=== PATIENT | male | born 1955 | race Caucasian/White ===

== ENCOUNTER 2016-08-25 12:06 | Emergency (ER) | payer MEDICARE, MEDICAID ==
[~2016-08-25] VITALS: Ht 172.7 cm; Wt 113.0 kg
[~2016-08-25 12:06] MED LIST: AMLO10TA2 PO; ATOR10TA9 PO; CARV25TA12 PO; FERR325T10 PO; FURO-92 PO; HYDR100T25 PO; HYDR20VI3 PO; ISOS20TA3 PO; LEVO750T26 PO; METO5TAB5 PO; NPH,100V SC; NPH,100V SQ-INSULIN; SODI650T PO; TERA1CAP3 PO
[2016-08-25] MEDS ORDERED: LISI-167 PO (13:43)
[2016-08-25] MEDS ORDERED: GLIP10TA13 PO (13:43)
[2016-08-25] MEDS ORDERED: NPH,100V INJ (13:50)
[2016-08-25] MEDS ORDERED: CARV25TA12 PO (13:50)
[2016-08-25] MEDS ORDERED: ALLO300T PO (13:50)
[2016-08-25 13:51] LABS: BLOOD UREA NITROGEN 79 mg/dL (7-18)
[2016-08-25 13:58] LABS: ASPARTATE AMINO TRANSFERASE 12 U/L (15-37)
[2016-08-25 16:14] VITALS: BP 131/52
== END 2016-08-25 16:15 | disposition home or self-care (01) ==
LOC: ED 13:06
DX: I87.2 Venous insufficiency (chronic) (peripheral) (principal); R60.0 Localized edema; I12.9 Hypertensive chronic kidney disease with stage 1 through stage 4 chronic kidney disease, or unspecified chronic kidney disease; E11.22 Type 2 diabetes mellitus with diabetic chronic kidney disease; N18.3 Chronic kidney disease, stage 3 (moderate)
CPT/HCPCS: 36415; 71020; 80053; 83880; 85025; 85610; 85730; 93970; 99285

== ENCOUNTER 2017-03-31 17:00 | Emergency (ER) | payer MEDICAID, MEDICARE ==
[~2017-03-31] VITALS: Ht 172.7 cm; Wt 102.1 kg
[~2017-03-31 17:00] MED LIST changes: +ALLO300T PO; -FERR325T10 PO; +FERR325T17 PO; +GLIP10TA13 PO; +LISI-167 PO; +NPH,100V INJ
[2017-03-31 17:11] VITALS: BP 137/65
[2017-03-31] MEDS ORDERED: [UNRECOGNIZED DRUG - OTHER] (17:32)
[2017-03-31] MEDS ORDERED: ONDANSETRON ODT 4 MG ONE (18:06)
[2017-03-31] MEDS ORDERED: ONDANSETRON ODT 4 MG PO ONE (18:30)
== END 2017-03-31 18:17 | disposition home or self-care (01) ==
LOC: ED 17:30
DX: J44.1 Chronic obstructive pulmonary disease with (acute) exacerbation (principal); I13.0 Hypertensive heart and chronic kidney disease with heart failure and stage 1 through stage 4 chronic kidney disease, or unspecified chronic kidney disease; N18.3 Chronic kidney disease, stage 3 (moderate); I50.9 Heart failure, unspecified; Z99.81 Dependence on supplemental oxygen; E11.9 Type 2 diabetes mellitus without complications
CPT/HCPCS: 71046; 99284; Q0162

== ENCOUNTER 2017-07-18 21:06 | Inpatient (IN) | payer MEDICARE ==
[~2017-07-18] VITALS: Ht 170.2 cm; Wt 104.3 kg
[~2017-07-18 21:06] MED LIST changes: +[UNRECOGNIZED DRUG - OTHER]
[2017-07-18] MEDS ORDERED: SODIUM CHLORIDE FLUSH 10ML SYR IVF ONE (23:00)
[2017-07-18] MEDS ORDERED: ACETAMINOPHEN 325 MG TABLET PO ONE (23:00)
[2017-07-18] MEDS ORDERED: SODIUM CHLORIDE 0.9% 1,000ML IVBOLUS ONE (23:00)
[2017-07-18] MEDS ORDERED: METF500T5 PO (23:05)
[2017-07-18] MEDS ORDERED: ASPI-621 PO (23:05)
[2017-07-18] MEDS ORDERED: AMLO5TAB2 PO (23:05)
[2017-07-18] MEDS ORDERED: SPIR50TA2 PO (23:05)
[2017-07-18 23:22] LABS: MEAN CORPUSCULAR HEMOGLOBIN 30.3 pg (27.5-34.5); MEAN CORPUSCULAR VOLUME 89.1 fL (81-97); MEAN PLATELET VOLUME 8.4 fL (7.4-10.4); PLATELET COUNT 182 x10^3/uL (130-400); RED BLOOD COUNT 3.33 x10^6/uL (4.38-5.82); RED CELL DISTRIBUTION WIDTH 13.1 % (9.4-14.8)
[2017-07-18 23:34] LABS: ALANINE AMINOTRANSFERASE 16 U/L (12-78); ALBUMIN 3.3 g/dL (3.4-5.0); ANION GAP 11 mmol/L (5-15); CALCIUM 9.1 mg/dL (8.5-10.1); CHLORIDE 96 mmol/L (98-107); CREATININE 3.07 mg/dL (0.7-1.3)
[2017-07-18 23:38] LABS: ALKALINE PHOSPHATASE 122 U/L (45-117); BASOPHILS # (AUTO) 0.03 x10^3/uL (0-0.1); BASOPHILS % (AUTO) 0 % (0-1); BILIRUBIN,TOTAL 0.7 mg/dL (0.2-1.0); EOSINOPHILS # (AUTO) 0.01 x10^3/uL (0-0.4); EOSINOPHILS % (AUTO) 0 % (1-7); LYMPHOCYTES # (AUTO) 0.67 x10^3/uL (1-3.4); LYMPHOCYTES % (AUTO) 4 % (22-44); MD SCAN; MONOCYTES # (AUTO) 1.36 x10^3/uL (0.2-0.8); MONOCYTES % (AUTO) 8 % (2-9); NEUTROPHILS # (AUTO) 15.34 x10^3/uL (1.8-6.8); NEUTROPHILS % (AUTO) 88 % (42-75); TOTAL PROTEIN 7.6 g/dL (6.4-8.2)
[2017-07-18 23:41] LABS: TROPONIN I < 0.015 ng/mL (0.000-0.045)
[2017-07-19 00:03] LABS: MICROSCOPIC AUTO
[2017-07-19 00:07] LABS: CULTURE INDICATED? YES
[2017-07-19] MEDS ORDERED: CEFTRIAXONE PMX 1GM/50ML 50 ML ONE (00:26)
[2017-07-19] MEDS ORDERED: CEFTRIAXONE PMX 1GM/50ML 50 ML IV ONE (00:30)
[2017-07-19] MEDS ORDERED: ACETAMINOPHEN 325 MG TABLET ONE (00:35)
[2017-07-19] MEDS ORDERED: ONDANSETRON 2MG/ML, 2ML IVPush PRN (01:00)
[2017-07-19] MEDS ORDERED: BISACODYL 10 MG SUPP PR PRN (01:00)
[2017-07-19] MEDS ORDERED: POLYETHYLENE GLYCOL 17 GM PACKET PO PRN (01:00)
[2017-07-19 01:14] LABS: HEMOGLOBIN A1C 9.9 % (4.2-6.3)
[2017-07-19 02:00] VITALS: BP 155/66
[2017-07-19] MEDS: SODIUM CHLORIDE 0.9% 1,000 ML IV SCH ×3 (02:50→21:04)
[2017-07-19] MEDS: HEPARIN 5,000 UNITS/ML, 1ML SQ SCH ×3 (02:51→17:03)
[2017-07-19 04:50] LABS: MEAN CORPUSCULAR HEMOGLOBIN 29.9 pg (27.5-34.5); MEAN CORPUSCULAR HGB CONC 33.4 g/dL (33.2-36.2); MEAN CORPUSCULAR VOLUME 89.3 fL (81-97); MEAN PLATELET VOLUME 8.9 fL (7.4-10.4); PLATELET COUNT 162 x10^3/uL (130-400); RED BLOOD COUNT 3.11 x10^6/uL (4.38-5.82); RED CELL DISTRIBUTION WIDTH 13.3 % (9.4-14.8)
[2017-07-19 05:03] LABS: CHLORIDE 98 mmol/L (98-107)
[2017-07-19 05:11] LABS: ALANINE AMINOTRANSFERASE 16 U/L (12-78); ALBUMIN 3.1 g/dL (3.4-5.0); ALKALINE PHOSPHATASE 120 U/L (45-117); ANION GAP 8 mmol/L (5-15); BILIRUBIN,TOTAL 0.7 mg/dL (0.2-1.0); CALCIUM 8.2 mg/dL (8.5-10.1); CREATININE 2.85 mg/dL (0.7-1.3); TOTAL PROTEIN 7.2 g/dL (6.4-8.2)
[2017-07-19 05:15] LABS: BASOPHILS % (AUTO) 0 % (0-1); EOSINOPHILS % (AUTO) 0 % (1-7); LYMPHOCYTES # (AUTO) 0.49 x10^3/uL (1-3.4); LYMPHOCYTES % (AUTO) 3 % (22-44); MD SCAN; MONOCYTES # (AUTO) 1.17 x10^3/uL (0.2-0.8); MONOCYTES % (AUTO) 8 % (2-9); NEUTROPHILS # (AUTO) 14.05 x10^3/uL (1.8-6.8); NEUTROPHILS % (AUTO) 89 % (42-75)
[2017-07-19] MEDS: ACETAMINOPHEN 325 MG TABLET PO PRN ×2 (06:16→19:21)
[2017-07-19 07:58] VITALS: BP 157/67
[2017-07-19] MEDS: metFORMIN 500 MG TABLET PO SCH ×2 (09:00→21:05)
[2017-07-19] MEDS: SPIRONOLACTONE 50 MG TABLET PO SCH (09:00)
[2017-07-19] MEDS: METOLAZONE 5 MG TABLET PO SCH (09:08)
[2017-07-19] MEDS: AMLODIPINE 5 MG TABLET PO SCH (09:10)
[2017-07-19] MEDS: ASPIRIN 81 MG TABLET EC PO SCH (09:12)
[2017-07-19] MEDS: CARVEDILOL 25 MG TABLET PO SCH ×2 (09:12→21:04)
[2017-07-19] MEDS: SENNA/DOCUSATE TABLET PO SCH (09:13)
[2017-07-19] MEDS: FUROSEMIDE 80 MG TABLET PO SCH (09:20)
[2017-07-19] MEDS: INSULIN NPH HUMAN 100 UNIT/ML, 3ML VIAL SQ-INSULIN SCH ×2 (10:14→21:08)
[2017-07-19 13:56] VITALS: BP 124/57
[2017-07-19 19:17] VITALS: BP 140/58
[2017-07-20 01:00] VITALS: BP 136/67
[2017-07-20] MEDS: HEPARIN 5,000 UNITS/ML, 1ML SQ SCH ×3 (01:00→17:39)
[2017-07-20] MEDS ORDERED: CEFTRIAXONE PMX 1GM/50ML 50 ML IV SCH (01:00)
[2017-07-20 04:55] LABS: ALBUMIN 2.8 g/dL (3.4-5.0); ANION GAP 8 mmol/L (5-15); CALCIUM 8.7 mg/dL (8.5-10.1); CHLORIDE 100 mmol/L (98-107)
[2017-07-20 04:59] LABS: ALANINE AMINOTRANSFERASE 14 U/L (12-78); ALKALINE PHOSPHATASE 117 U/L (45-117); BILIRUBIN,TOTAL 0.5 mg/dL (0.2-1.0); TOTAL PROTEIN 7.2 g/dL (6.4-8.2)
[2017-07-20 05:00] LABS: MEAN CORPUSCULAR HGB CONC 33.2 g/dL (33.2-36.2); MEAN CORPUSCULAR VOLUME 90.5 fL (81-97); MEAN PLATELET VOLUME 9.4 fL (7.4-10.4); PLATELET COUNT 180 x10^3/uL (130-400); RED BLOOD COUNT 2.98 x10^6/uL (4.38-5.82); RED CELL DISTRIBUTION WIDTH 13.7 % (9.4-14.8)
[2017-07-20 05:57] LABS: BASOPHILS # (AUTO) 0.01 x10^3/uL (0-0.1); BASOPHILS % (AUTO) 0 % (0-1); EOSINOPHILS # (AUTO) 0.06 x10^3/uL (0-0.4); EOSINOPHILS % (AUTO) 0 % (1-7); LYMPHOCYTES # (AUTO) 0.72 x10^3/uL (1-3.4); LYMPHOCYTES % (AUTO) 4 % (22-44); MD SCAN; MONOCYTES # (AUTO) 1.15 x10^3/uL (0.2-0.8); MONOCYTES % (AUTO) 7 % (2-9); NEUTROPHILS # (AUTO) 14.27 x10^3/uL (1.8-6.8); NEUTROPHILS % (AUTO) 88 % (42-75)
[2017-07-20] MEDS: SODIUM CHLORIDE 0.9% 1,000 ML IV SCH ×3 (06:18→19:15)
[2017-07-20 07:26] VITALS: BP 130/54
[2017-07-20] MEDS: SPIRONOLACTONE 50 MG TABLET PO SCH (08:20)
[2017-07-20] MEDS: METOLAZONE 5 MG TABLET PO SCH (08:20)
[2017-07-20] MEDS: CEFTRIAXONE PMX 2GM/50ML 50 ML IV SCH (08:20)
[2017-07-20] MEDS: ASPIRIN 81 MG TABLET EC PO SCH (08:20)
[2017-07-20] MEDS: CARVEDILOL 25 MG TABLET PO SCH ×2 (08:22→21:25)
[2017-07-20] MEDS: AMLODIPINE 5 MG TABLET PO SCH (08:22)
[2017-07-20] MEDS: SENNA/DOCUSATE TABLET PO SCH (08:22)
[2017-07-20] MEDS: FUROSEMIDE 80 MG TABLET PO SCH (08:22)
[2017-07-20] MEDS: metFORMIN 500 MG TABLET PO SCH ×2 (08:22→21:28)
[2017-07-20 09:54] VITALS: BP 132/49
[2017-07-20] MEDS: INSULIN NPH HUMAN 100 UNIT/ML, 3ML VIAL SQ-INSULIN SCH ×2 (10:00→21:26)
[2017-07-20] MEDS ORDERED: [UNRECOGNIZED DRUG - REMARK] XX PRN (14:30)
[2017-07-20 15:47] VITALS: BP 113/45
[2017-07-20 19:39] VITALS: BP 137/56
[2017-07-20] MEDS: ACETAMINOPHEN 325 MG TABLET PO PRN (23:07)
[2017-07-21 01:06] VITALS: BP 129/55
[2017-07-21] MEDS: HEPARIN 5,000 UNITS/ML, 1ML SQ SCH ×2 (01:08→09:00)
[2017-07-21] MEDS: SODIUM CHLORIDE 0.9% 1,000 ML IV SCH (04:32)
[2017-07-21 05:42] LABS: BASOPHILS % (AUTO) 0 % (0-1); EOSINOPHILS # (AUTO) 0.32 x10^3/uL (0-0.4); EOSINOPHILS % (AUTO) 3 % (1-7); LYMPHOCYTES # (AUTO) 0.86 x10^3/uL (1-3.4); LYMPHOCYTES % (AUTO) 7 % (22-44); MD NO; MEAN CORPUSCULAR HEMOGLOBIN 30.6 pg (27.5-34.5); MEAN CORPUSCULAR HGB CONC 34.1 g/dL (33.2-36.2); MEAN CORPUSCULAR VOLUME 89.8 fL (81-97); MEAN PLATELET VOLUME 9.1 fL (7.4-10.4); MONOCYTES # (AUTO) 1.12 x10^3/uL (0.2-0.8); MONOCYTES % (AUTO) 10 % (2-9); NEUTROPHILS % (AUTO) 81 % (42-75); PLATELET COUNT 183 x10^3/uL (130-400); RED BLOOD COUNT 2.68 x10^6/uL (4.38-5.82); RED CELL DISTRIBUTION WIDTH 13.6 % (9.4-14.8)
[2017-07-21 05:46] LABS: ALBUMIN 2.7 g/dL (3.4-5.0); ANION GAP 9 mmol/L (5-15); CALCIUM 8.5 mg/dL (8.5-10.1); CHLORIDE 102 mmol/L (98-107)
[2017-07-21 05:50] LABS: ALANINE AMINOTRANSFERASE 15 U/L (12-78); ALKALINE PHOSPHATASE 126 U/L (45-117); BILIRUBIN,TOTAL 0.4 mg/dL (0.2-1.0); CREATININE 2.51 mg/dL (0.7-1.3)
[2017-07-21 07:25] VITALS: BP 146/63
[2017-07-21] MEDS: CEFTRIAXONE PMX 2GM/50ML 50 ML IV SCH (07:57)
[2017-07-21] MEDS ORDERED: SULF1TAB24 PO (08:12)
[2017-07-21] MEDS: INSULIN NPH HUMAN 100 UNIT/ML, 3ML VIAL SQ-INSULIN SCH (09:00)
[2017-07-21] MEDS: METOLAZONE 5 MG TABLET PO SCH (09:17)
[2017-07-21] MEDS: SENNA/DOCUSATE TABLET PO SCH (09:18)
[2017-07-21] MEDS: FUROSEMIDE 80 MG TABLET PO SCH (09:18)
[2017-07-21] MEDS: ASPIRIN 81 MG TABLET EC PO SCH (09:18)
[2017-07-21] MEDS: CARVEDILOL 25 MG TABLET PO SCH (09:18)
[2017-07-21] MEDS: SPIRONOLACTONE 50 MG TABLET PO SCH (09:18)
[2017-07-21] MEDS: AMLODIPINE 5 MG TABLET PO SCH (09:18)
[2017-07-21] MEDS: metFORMIN 500 MG TABLET PO SCH (09:21)
== END 2017-07-21 11:20 | disposition home or self-care (01) | DRG 871 ==
LOC: ED 07-19 00:39 → EDIP 07-19 00:44 → ED 07-19 00:56 → 3NW 07-19 01:24
PROVIDERS: ADMIT Internal Medicine; ATTEND Internal Medicine
PROC: 0T9B70Z Drainage of Bladder with Drainage Device, Via Natural or Artificial Opening (ICD-10-PCS; principal; 2017-07-18)
DX: A41.9 Sepsis, unspecified organism (principal); N17.0 Acute kidney failure with tubular necrosis; N39.0 Urinary tract infection, site not specified; N18.4 Chronic kidney disease, stage 4 (severe); I13.0 Hypertensive heart and chronic kidney disease with heart failure and stage 1 through stage 4 chronic kidney disease, or unspecified chronic kidney disease; E87.1 Hypo-osmolality and hyponatremia; E44.1 Mild protein-calorie malnutrition; I50.32 Chronic diastolic (congestive) heart failure; E11.22 Type 2 diabetes mellitus with diabetic chronic kidney disease; E11.40 Type 2 diabetes mellitus with diabetic neuropathy, unspecified; D64.9 Anemia, unspecified; E11.21 Type 2 diabetes mellitus with diabetic nephropathy; E11.65 Type 2 diabetes mellitus with hyperglycemia; E78.5 Hyperlipidemia, unspecified; G47.33 Obstructive sleep apnea (adult) (pediatric); J44.9 Chronic obstructive pulmonary disease, unspecified; Z79.4 Long term (current) use of insulin; Z87.01 Personal history of pneumonia (recurrent); Z79.82 Long term (current) use of aspirin; Z79.899 Other long term (current) drug therapy
CPT/HCPCS: 36415; 71045; 80053; 81001; 82962; 83036; 83605; 83735; 83880; 84100; 84145; 84484; 85025; 87040; 87077; 87086; 87186; 93005; 96374; J0696; J1644; J1815; J2405; J7030

== ENCOUNTER 2018-03-28 05:18 | Emergency (ER) | payer MEDICARE ==
[~2018-03-28] VITALS: Ht 160 cm; Wt 107.5 kg
[~2018-03-28 05:18] MED LIST changes: +AMLO-150 PO; -AMLO10TA2 PO; +AMLO10TA8 PO; +ASPI81TA45 PO; +METF500T17 PO; +SPIR50TA4 PO; +SULF1TAB24 PO
--- NOTE | 2018-03-28 06:30 | NUR ---
to room 02
[2018-03-28] MEDS ORDERED: OXYcodone/APAP 10/325MG TABLET ONE (06:51)
--- NOTE | 2018-03-28 06:55 | NUR ---
REPORT FROM MICHAEL RAMESH.
[2018-03-28] MEDS ORDERED: OXYcodone/APAP 10/325MG TABLET PO ONE (07:00)
[2018-03-28 07:04] VITALS: BP 110/56
--- NOTE | 2018-03-28 07:38 | NUR ---
Patient given discharge instructions and they have confirmed that they understand the instructions. Patient ambulatory with steady gait.
== END 2018-03-28 07:40 | disposition home or self-care (01) ==
LOC: ED 07:14
DX: K08.89 Other specified disorders of teeth and supporting structures (principal); E11.21 Type 2 diabetes mellitus with diabetic nephropathy; E11.22 Type 2 diabetes mellitus with diabetic chronic kidney disease; I13.0 Hypertensive heart and chronic kidney disease with heart failure and stage 1 through stage 4 chronic kidney disease, or unspecified chronic kidney disease; N18.3 Chronic kidney disease, stage 3 (moderate); J44.9 Chronic obstructive pulmonary disease, unspecified; I50.9 Heart failure, unspecified
CPT/HCPCS: 99283

== ENCOUNTER 2018-08-26 22:07 | Inpatient (IN) | payer MEDICARE ==
[~2018-08-26] VITALS: Ht 172.7 cm; Wt 110.7 kg
[2018-08-30 15:40] VITALS: BP 163/64
== END 2018-08-30 18:09 | disposition home or self-care (01) | DRG 682 ==
LOC: ED 23:50 → EDIP 23:55 → 4WST 08-27 00:33
PROVIDERS: ADMIT Internal Medicine; ATTEND Internal Medicine
DX: N17.9 Acute kidney failure, unspecified (principal); I50.33 Acute on chronic diastolic (congestive) heart failure; I13.0 Hypertensive heart and chronic kidney disease with heart failure and stage 1 through stage 4 chronic kidney disease, or unspecified chronic kidney disease; E87.1 Hypo-osmolality and hyponatremia; N18.4 Chronic kidney disease, stage 4 (severe); E78.5 Hyperlipidemia, unspecified; E11.22 Type 2 diabetes mellitus with diabetic chronic kidney disease; D64.9 Anemia, unspecified; G47.33 Obstructive sleep apnea (adult) (pediatric); E66.01 Morbid (severe) obesity due to excess calories; I34.0 Nonrheumatic mitral (valve) insufficiency; I87.2 Venous insufficiency (chronic) (peripheral); I70.0 Atherosclerosis of aorta; J44.9 Chronic obstructive pulmonary disease, unspecified; L29.9 Pruritus, unspecified; N25.81 Secondary hyperparathyroidism of renal origin; N28.1 Cyst of kidney, acquired; Z83.3 Family history of diabetes mellitus; Z82.49 Family history of ischemic heart disease and other diseases of the circulatory system; Z87.891 Personal history of nicotine dependence; Z79.4 Long term (current) use of insulin; Z87.440 Personal history of urinary (tract) infections; Z68.37 Body mass index [BMI] 37.0-37.9, adult; Z79.899 Other long term (current) drug therapy
CPT/HCPCS: 36415; 71046; 76770; 80048; 80053; 80069; 81003; 82306; 82550; 82570; 82728; 82962; 83036; 83540; 83550; 83735; 83880; 83970; 84100; 84156; 84484; 85025; 93005; 93306; 93970; 99285; G0378; J1644; J1815; J1940; Q0163

== ENCOUNTER 2019-03-17 16:02 | Inpatient (IN) | payer MEDICARE ==
[~2019-03-17] VITALS: Ht 175.3 cm; Wt 97.6 kg
[~2019-03-17 16:02] MED LIST changes: +ATOR40TA78 PO; +CHOL500015 PO; +DIPH25CA61 PO; +FERR325T16 PO; +FURO40TA6 PO; +LINA5TAB PO; +PROPOFOL 100 ML IV ONE
[2019-03-17] MEDS ORDERED: SODIUM CHLORIDE 0.9% 1,000 ML IV ONE (16:11)
[2019-03-17 16:23] LABS: BASOPHILS # (AUTO) 0.03 x10^3/uL (0-0.1); BASOPHILS % (AUTO) 0 % (0-1); EOSINOPHILS % (AUTO) 0 % (1-7); LYMPHOCYTES # (AUTO) 1.09 x10^3/uL (1-3.4); LYMPHOCYTES % (AUTO) 9 % (22-44); MD NO; MEAN CORPUSCULAR HEMOGLOBIN 28.8 pg (27.5-34.5); MEAN CORPUSCULAR HGB CONC 32.6 g/dL (33.2-36.2); MEAN CORPUSCULAR VOLUME 88.2 fL (81-97); MEAN PLATELET VOLUME 8.4 fL (7.4-10.4); MONOCYTES # (AUTO) 0.71 x10^3/uL (0.2-0.8); MONOCYTES % (AUTO) 6 % (2-9); NEUTROPHILS # (AUTO) 9.77 x10^3/uL (1.8-6.8); NEUTROPHILS % (AUTO) 84 % (42-75); PLATELET COUNT 175 x10^3/uL (130-400); RED BLOOD COUNT 3.04 x10^6/uL (4.38-5.82); RED CELL DISTRIBUTION WIDTH 15.3 % (9.4-14.8)
[2019-03-17] MEDS ORDERED: EPINEPHRINE SYRINGE 0.1 MG/ML, 10ML ONE (16:30)
[2019-03-17] MEDS ORDERED: NALOXONE 0.4 MG/ML, 1ML ONE (16:30)
[2019-03-17] MEDS ORDERED: OXYcodone IR 5MG TABLET PO PRN (16:30)
[2019-03-17] MEDS ORDERED: LABETALOL 5MG/ML, 20ML IVPush PRN (16:30)
[2019-03-17] MEDS ORDERED: SODIUM CHLORIDE FLUSH 10ML SYR IVF ONE (16:30)
[2019-03-17] MEDS ORDERED: morphine SULFATE 10 MG/ML, 1ML IVPush PRN (16:30)
[2019-03-17] MEDS ORDERED: ONDANSETRON 2MG/ML, 2ML IVPush PRN (16:30)
[2019-03-17] MEDS ORDERED: POLYETHYLENE GLYCOL 17 GM PACKET PO PRN (16:30)
[2019-03-17] MEDS: PLEASE ENTER HEIGHT AND WEIGHT MC SCH ×2 (16:30→20:07)
[2019-03-17] MEDS ORDERED: ENALAPRILAT 1.25 MG/ML, 2ML IVPush PRN (16:30)
[2019-03-17] MEDS: PLEASE ENTER ALLERGIES MC SCH ×2 (16:30→20:07)
[2019-03-17] MEDS ORDERED: SODIUM CHLORIDE 0.9% 1,000ML IVBOLUS ONE (16:30)
[2019-03-17] MEDS ORDERED: BISACODYL 10 MG SUPP PR PRN ×2 (16:30→19:00)
[2019-03-17 16:34] LABS: INTERNATIONAL NORMALIZED RATIO 0.93 (0.93-1.1); PROTHROMBIN TIME 9.9 Seconds (9.6-11.5)
[2019-03-17 16:37] LABS: ALBUMIN 2.8 g/dL (3.4-5.0); ANION GAP 12 mmol/L (5-15); CALCIUM 8.3 mg/dL (8.5-10.1); CHLORIDE 90 mmol/L (98-107)
[2019-03-17 16:39] LABS: ALANINE AMINOTRANSFERASE 21 U/L (12-78); ALKALINE PHOSPHATASE 170 U/L (45-117); BILIRUBIN,TOTAL 1.1 mg/dL (0.2-1.0); CREATININE 3.88 mg/dL (0.7-1.3); TOTAL PROTEIN 7.8 g/dL (6.4-8.2); TROPONIN I < 0.015 ng/mL (0.000-0.045)
[2019-03-17 16:40] LABS: SALICYLATE LEVEL < 1.7 mg/dL (2.8-20.0)
[2019-03-17] MEDS ORDERED: PROPOFOL 100 ML IV PRN (16:54)
[2019-03-17 16:59] LABS: ACETONE, SERUM Negative (Negative)
--- NOTE | 2019-03-17 17:00 | NUR ---
THIS IS A 63 Y/O MALE WHO ARRIVED IN APPARENT ARREST, PT WAS TAKEN TO T 4 IMMEDIATELY AND INTUBATED WITH AN 8.0 TUBE. PT RECEIVED 2 ROUNDS OF COMPRESSIONS AND 1 EPI AND 2.0 MG OF NARCAN. PT AFTER INTUBATION ROSC WAS OBTAINED AND PT HAD HASSAN PLACED AND OG TUBE. PT CONNECTED TO MONITORS AND DIPRIVAN WAS STARTED FOR SEDATION. PT GIVEN 1000 CC FLUID BOLUS AND BG WAS 424. PT PLACED ON SAFETY RESTRAINTS.
[2019-03-17 17:44] LABS: MICROSCOPIC INDICATED
--- NOTE | 2019-03-17 18:03 | NUR ---
PT TAKEN TO CT, TOLERATED WELL, NEW PIV PLACED 16 WAS PULLED OUT ACCIDENTLY. PT TEPORT TO DIRK RAMESH 550.
[2019-03-17] MEDS: AMPICILLIN/SULBACTAM 3 GM in SODIUM CHLORIDE 0.9% 100 ML IV SCH ×2 (18:18→23:48)
[2019-03-17 18:22] LABS: CULTURE INDICATED? NO
[2019-03-17] MEDS ORDERED: LACTULOSE 20 GM/30 ML UDC NG PRN (19:00)
[2019-03-17] MEDS ORDERED: GLUCAGON 1 MG IM PRN (19:00)
[2019-03-17] MEDS ORDERED: DEXTROSE 4 GM TAB.CHEW PO PRN (19:00)
[2019-03-17] MEDS ORDERED: SENNA/DOCUSATE TABLET NG PRN (19:00)
[2019-03-17] MEDS ORDERED: PHARMACY MAY ADJ FOR RENAL FX MC SCH (19:00)
[2019-03-17] MEDS ORDERED: DEXTROSE 50%, 50ML SYRINGE IVPush PRN (19:00)
[2019-03-17] MEDS ORDERED: SENNA 176 MG/5 ML ORAL SOL NG PRN (19:00)
[2019-03-17] MEDS: PROPOFOL 100 ML IV PRN ×2 (19:33→23:46)
[2019-03-17 19:34] LABS: AMPHETAMINE SCREEN, URINE Negative (Negative); BARBITURATE SCREEN, URINE Negative (Negative); BENZODIAZEPINE SCREEN, URINE Negative (Negative); CANNABINOID SCREEN, URINE Negative (Negative); COCAINE SCREEN, URINE Negative (Negative); METHADONE SCREEN, URINE Negative (Negative); OPIATE SCREEN, URINE Negative (Negative)
[2019-03-17] MEDS: INSULIN LISPRO 100 UNITS/ML, PEN SQ-INSULIN SCH ×2 (20:08→21:29)
[2019-03-17] MEDS ORDERED: FAMOTIDINE 20 MG/2 ML IVPush SCH (21:00)
[2019-03-17] MEDS: SODIUM CHLORIDE FLUSH 10ML SYR IVF SCH (21:28)
[2019-03-17] MEDS: FAMOTIDINE 20 MG/2 ML IVPush SCH (21:28)
[2019-03-17] MEDS: ALBUTEROL/IPRATROPIUM 2.5MG/0.5MG, 3 ML INLINE SCH ×2 (21:33→23:00)
[2019-03-17 22:16] LABS: INTERNATIONAL NORMALIZED RATIO 0.94 (0.93-1.1)
[2019-03-17 22:18] LABS: TRIGLYCERIDES 211 mg/dL (50-200)
[2019-03-17 22:19] LABS: SALICYLATE LEVEL < 1.7 mg/dL (2.8-20.0)
[2019-03-18] MEDS ORDERED: D5%-0.9% NACL 1,000 ML IV SCH (00:30)
[2019-03-18 00:52] LABS: ALANINE AMINOTRANSFERASE 51 U/L (12-78); ALBUMIN 2.5 g/dL (3.4-5.0); ANION GAP 11 mmol/L (5-15); CHLORIDE 92 mmol/L (98-107); CREATININE 3.88 mg/dL (0.7-1.3)
[2019-03-18 00:54] LABS: ALKALINE PHOSPHATASE 195 U/L (45-117); BILIRUBIN,TOTAL 1.2 mg/dL (0.2-1.0)
[2019-03-18] MEDS: ALBUTEROL/IPRATROPIUM 2.5MG/0.5MG, 3 ML INLINE SCH ×6 (03:00→22:05)
[2019-03-18] MEDS: PROPOFOL 100 ML IV PRN ×4 (04:21→23:42)
[2019-03-18 04:24] VITALS: BP 111/43
[2019-03-18] MEDS: AMPICILLIN/SULBACTAM 3 GM in SODIUM CHLORIDE 0.9% 100 ML IV SCH ×2 (05:22→13:02)
[2019-03-18 06:05] LABS: ALANINE AMINOTRANSFERASE 45 U/L (12-78); ALBUMIN 2.4 g/dL (3.4-5.0); ANION GAP 9 mmol/L (5-15); CALCIUM 7.6 mg/dL (8.5-10.1); CHLORIDE 92 mmol/L (98-107); CREATININE 4.06 mg/dL (0.7-1.3); TRIGLYCERIDES 207 mg/dL (50-200)
[2019-03-18 06:07] LABS: MEAN CORPUSCULAR HEMOGLOBIN 29.4 pg (27.5-34.5); MEAN CORPUSCULAR HGB CONC 33.5 g/dL (33.2-36.2); MEAN CORPUSCULAR VOLUME 87.8 fL (81-97); MEAN PLATELET VOLUME 8.2 fL (7.4-10.4); PLATELET COUNT 183 x10^3/uL (130-400); RED BLOOD COUNT 2.49 x10^6/uL (4.38-5.82); RED CELL DISTRIBUTION WIDTH 14.9 % (9.4-14.8)
[2019-03-18 06:10] LABS: ALKALINE PHOSPHATASE 182 U/L (45-117); TOTAL PROTEIN 6.7 g/dL (6.4-8.2)
[2019-03-18 06:20] LABS: MD MORPH REVIEW ONLY
[2019-03-18 06:21] LABS: ANISOCYTOSIS 1+; BASOPHILS # (AUTO) 0.02 x10^3/uL (0-0.1); BASOPHILS % (AUTO) 0 % (0-1); EOSINOPHILS # (AUTO) 0.06 x10^3/uL (0-0.4); EOSINOPHILS % (AUTO) 1 % (1-7); LYMPHOCYTES # (AUTO) 0.54 x10^3/uL (1-3.4); LYMPHOCYTES % (AUTO) 6 % (22-44); MONOCYTES # (AUTO) 0.73 x10^3/uL (0.2-0.8); MONOCYTES % (AUTO) 8 % (2-9); NEUTROPHILS % (AUTO) 85 % (42-75); POLYCHROMASIA 1+
[2019-03-18 06:22] LABS: <PLATELET ESTIMATE> ADEQUATE; <PLT MORPHOLOGY> NORMAL PLT MORPH; OVALOCYTES 1+
[2019-03-18] MEDS: INSULIN LISPRO 100 UNITS/ML, PEN SQ-INSULIN SCH ×3 (06:22→19:47)
[2019-03-18] MEDS ORDERED: NALOXONE 1 MG/ML, 2ML ONE (08:00)
[2019-03-18] MEDS ORDERED: EPINEPHRINE SYRINGE 0.1 MG/ML, 10ML ONE (08:00)
[2019-03-18] MEDS: SENNA/DOCUSATE TABLET PO SCH (08:12)
[2019-03-18] MEDS: PANTOPRAZOLE 40 MG IV IV SCH (08:12)
[2019-03-18] MEDS: SODIUM CHLORIDE FLUSH 10ML SYR IVF SCH ×2 (08:12→19:54)
[2019-03-18] MEDS: FAMOTIDINE 20 MG/2 ML IVPush SCH (08:12)
[2019-03-18] MEDS: INSULIN GLARGINE 100 UNITS/ML, PEN SQ-INSULIN SCH ×2 (08:18→19:49)
[2019-03-18] MEDS: HEPARIN 5,000 UNITS/ML, 1ML SQ SCH ×2 (11:00→21:02)
[2019-03-18] MEDS ORDERED: INSULIN LISPRO 100 UNITS/ML, PEN SQ-INSULIN SCH (11:00)
[2019-03-18 12:03] LABS: CALCIUM 8.2 mg/dL (8.5-10.1)
[2019-03-18] MEDS: FENTANYL PF 100 MCG/2ML IVPush PRN (19:46)
[2019-03-18] MEDS: IRON SUCROSE COMPLEX 100MG/5ML IV SCH (19:48)
[2019-03-19] MEDS: AMPICILLIN/SULBACTAM 3 GM in SODIUM CHLORIDE 0.9% 100 ML IV SCH ×3 (00:19→13:30)
[2019-03-19] MEDS: PROPOFOL 100 ML IV PRN ×6 (02:31→23:32)
[2019-03-19] MEDS: INSULIN LISPRO 100 UNITS/ML, PEN SQ-INSULIN SCH ×4 (02:40→21:46)
[2019-03-19] MEDS: ALBUTEROL/IPRATROPIUM 2.5MG/0.5MG, 3 ML INLINE SCH ×6 (03:00→22:16)
[2019-03-19 03:36] LABS: ALANINE AMINOTRANSFERASE 34 U/L (12-78); ALBUMIN 2.3 g/dL (3.4-5.0); ANION GAP 8 mmol/L (5-15); CALCIUM 7.8 mg/dL (8.5-10.1); CHLORIDE 98 mmol/L (98-107); CREATININE 3.51 mg/dL (0.7-1.3)
[2019-03-19 03:37] LABS: ALKALINE PHOSPHATASE 155 U/L (45-117); BILIRUBIN,TOTAL 0.5 mg/dL (0.2-1.0); TOTAL PROTEIN 6.8 g/dL (6.4-8.2)
[2019-03-19 04:12] LABS: MEAN CORPUSCULAR HEMOGLOBIN 28.9 pg (27.5-34.5); MEAN CORPUSCULAR HGB CONC 33.2 g/dL (33.2-36.2); MEAN CORPUSCULAR VOLUME 87.2 fL (81-97); MEAN PLATELET VOLUME 7.9 fL (7.4-10.4); PLATELET COUNT 200 x10^3/uL (130-400); RED BLOOD COUNT 2.51 x10^6/uL (4.38-5.82); RED CELL DISTRIBUTION WIDTH 15.1 % (9.4-14.8)
[2019-03-19 04:14] LABS: BASOPHILS # (AUTO) 0.02 x10^3/uL (0-0.1); BASOPHILS % (AUTO) 0 % (0-1); EOSINOPHILS # (AUTO) 0.17 x10^3/uL (0-0.4); EOSINOPHILS % (AUTO) 2 % (1-7); LYMPHOCYTES # (AUTO) 0.73 x10^3/uL (1-3.4); LYMPHOCYTES % (AUTO) 9 % (22-44); MD SCAN; MONOCYTES # (AUTO) 0.62 x10^3/uL (0.2-0.8); MONOCYTES % (AUTO) 7 % (2-9); NEUTROPHILS % (AUTO) 82 % (42-75)
[2019-03-19 04:51] VITALS: BP 120/51
[2019-03-19] MEDS: SENNA/DOCUSATE TABLET PO SCH (08:27)
[2019-03-19] MEDS: SODIUM CHLORIDE FLUSH 10ML SYR IVF SCH ×2 (08:27→21:47)
[2019-03-19] MEDS: PANTOPRAZOLE 40 MG IV IV SCH (08:27)
[2019-03-19] MEDS: HEPARIN 5,000 UNITS/ML, 1ML SQ SCH ×2 (08:28→21:46)
[2019-03-19] MEDS ORDERED: FENTANYL PF 1,000 MCG in SODIUM CHLORIDE 0.9% 80 ML IV PRN (08:30)
[2019-03-19] MEDS: INSULIN GLARGINE 100 UNITS/ML, PEN SQ-INSULIN SCH ×2 (08:32→21:47)
[2019-03-19] MEDS: FENTANYL PF 100 MCG/2ML IVPush PRN ×2 (13:40→19:45)
[2019-03-19] MEDS: DARBEPOETIN 100 MCG/ML SQ SCH (15:59)
[2019-03-19] MEDS: IRON SUCROSE COMPLEX 100MG/5ML IV SCH (21:46)
[2019-03-20] MEDS: AMPICILLIN/SULBACTAM 3 GM in SODIUM CHLORIDE 0.9% 100 ML IV SCH ×2 (02:36→13:46)
[2019-03-20] MEDS: INSULIN LISPRO 100 UNITS/ML, PEN SQ-INSULIN SCH ×4 (02:45→20:27)
[2019-03-20] MEDS: PROPOFOL 100 ML IV PRN ×3 (02:46→22:01)
[2019-03-20] MEDS: ALBUTEROL/IPRATROPIUM 2.5MG/0.5MG, 3 ML INLINE SCH ×6 (02:59→22:59)
[2019-03-20 04:00] VITALS: BP 138/57
[2019-03-20 05:08] LABS: BASOPHILS # (AUTO) 0.03 x10^3/uL (0-0.1); BASOPHILS % (AUTO) 0 % (0-1); EOSINOPHILS # (AUTO) 0.24 x10^3/uL (0-0.4); EOSINOPHILS % (AUTO) 3 % (1-7); LYMPHOCYTES # (AUTO) 0.74 x10^3/uL (1-3.4); LYMPHOCYTES % (AUTO) 8 % (22-44); MD NO; MEAN CORPUSCULAR HEMOGLOBIN 29.2 pg (27.5-34.5); MEAN CORPUSCULAR HGB CONC 33.3 g/dL (33.2-36.2); MEAN CORPUSCULAR VOLUME 87.6 fL (81-97); MONOCYTES # (AUTO) 0.73 x10^3/uL (0.2-0.8); MONOCYTES % (AUTO) 8 % (2-9); NEUTROPHILS # (AUTO) 7.25 x10^3/uL (1.8-6.8); NEUTROPHILS % (AUTO) 81 % (42-75); PLATELET COUNT 221 x10^3/uL (130-400); RED BLOOD COUNT 2.65 x10^6/uL (4.38-5.82); RED CELL DISTRIBUTION WIDTH 15.8 % (9.4-14.8)
[2019-03-20 05:15] LABS: ALANINE AMINOTRANSFERASE 30 U/L (12-78); ALBUMIN 2.4 g/dL (3.4-5.0); ANION GAP 7 mmol/L (5-15); CHLORIDE 98 mmol/L (98-107); CREATININE 2.48 mg/dL (0.7-1.3); TRIGLYCERIDES 213 mg/dL (50-200)
[2019-03-20 05:17] LABS: ALKALINE PHOSPHATASE 156 U/L (45-117); BILIRUBIN,TOTAL 0.5 mg/dL (0.2-1.0); TOTAL PROTEIN 7.1 g/dL (6.4-8.2)
[2019-03-20] MEDS: HEPARIN 5,000 UNITS/ML, 1ML SQ SCH ×2 (09:22→20:07)
[2019-03-20] MEDS: SODIUM CHLORIDE FLUSH 10ML SYR IVF SCH ×2 (09:22→20:30)
[2019-03-20] MEDS: SENNA/DOCUSATE TABLET PO SCH (09:22)
[2019-03-20] MEDS: PANTOPRAZOLE 40 MG IV IV SCH (09:22)
[2019-03-20] MEDS: INSULIN GLARGINE 100 UNITS/ML, PEN SQ-INSULIN SCH ×2 (09:36→20:28)
[2019-03-20] MEDS: ACETAMINOPHEN 325 MG TABLET PO PRN (15:57)
[2019-03-20] MEDS: FENTANYL PF 100 MCG/2ML IVPush PRN (15:57)
[2019-03-20] MEDS: LIDOCAINE-MPF 1%, 2ML ENDO PRN (20:00)
[2019-03-20] MEDS: IRON SUCROSE COMPLEX 100MG/5ML IV SCH (20:07)
[2019-03-21] MEDS: AMPICILLIN/SULBACTAM 3 GM in SODIUM CHLORIDE 0.9% 100 ML IV SCH ×2 (01:59→14:14)
[2019-03-21] MEDS: PROPOFOL 100 ML IV PRN (01:59)
[2019-03-21] MEDS: ALBUTEROL/IPRATROPIUM 2.5MG/0.5MG, 3 ML INLINE SCH ×3 (02:30→11:00)
[2019-03-21] MEDS: INSULIN LISPRO 100 UNITS/ML, PEN SQ-INSULIN SCH ×4 (03:17→20:00)
[2019-03-21 04:00] VITALS: BP 141/52
[2019-03-21 04:44] LABS: BASOPHILS # (AUTO) 0.02 x10^3/uL (0-0.1); BASOPHILS % (AUTO) 0 % (0-1); EOSINOPHILS # (AUTO) 0.12 x10^3/uL (0-0.4); EOSINOPHILS % (AUTO) 1 % (1-7); LYMPHOCYTES # (AUTO) 0.73 x10^3/uL (1-3.4); LYMPHOCYTES % (AUTO) 8 % (22-44); MD NO; MEAN CORPUSCULAR HGB CONC 32.8 g/dL (33.2-36.2); MEAN CORPUSCULAR VOLUME 88.4 fL (81-97); MEAN PLATELET VOLUME 6.9 fL (7.4-10.4); MONOCYTES # (AUTO) 0.83 x10^3/uL (0.2-0.8); MONOCYTES % (AUTO) 9 % (2-9); NEUTROPHILS # (AUTO) 7.87 x10^3/uL (1.8-6.8); NEUTROPHILS % (AUTO) 82 % (42-75); PLATELET COUNT 232 x10^3/uL (130-400); RED BLOOD COUNT 2.61 x10^6/uL (4.38-5.82); RED CELL DISTRIBUTION WIDTH 15.1 % (9.4-14.8)
[2019-03-21 04:57] LABS: ALANINE AMINOTRANSFERASE 25 U/L (12-78); ALBUMIN 2.2 g/dL (3.4-5.0); ANION GAP 9 mmol/L (5-15); CALCIUM 8.3 mg/dL (8.5-10.1); CHLORIDE 99 mmol/L (98-107); CREATININE 2.33 mg/dL (0.7-1.3)
[2019-03-21 05:01] LABS: ALKALINE PHOSPHATASE 161 U/L (45-117); BILIRUBIN,TOTAL 0.4 mg/dL (0.2-1.0); TOTAL PROTEIN 7.1 g/dL (6.4-8.2)
[2019-03-21] MEDS: SENNA/DOCUSATE TABLET PO SCH (08:04)
[2019-03-21] MEDS: HEPARIN 5,000 UNITS/ML, 1ML SQ SCH ×2 (08:04→20:15)
[2019-03-21] MEDS: PANTOPRAZOLE 40 MG IV IV SCH (08:04)
[2019-03-21] MEDS: SODIUM CHLORIDE FLUSH 10ML SYR IVF SCH ×2 (08:05→20:18)
[2019-03-21] MEDS: LIDOCAINE-MPF 1%, 2ML ENDO PRN (09:14)
[2019-03-21] MEDS: INSULIN GLARGINE 100 UNITS/ML, PEN SQ-INSULIN SCH ×2 (09:35→20:16)
[2019-03-21] MEDS: FENTANYL PF 100 MCG/2ML IVPush PRN ×2 (09:53→12:29)
--- NOTE | 2019-03-21 10:19 | NUR ---
TF Recommendations Vital HP ON propofol 60 ml/hr OFF propofol 65 ml/hr
[2019-03-21] MEDS: METOPROLOL TARTRATE 25 MG TAB PO SCH ×2 (12:32→18:00)
[2019-03-21] MEDS: IRON SUCROSE COMPLEX 100MG/5ML IV SCH (20:14)
[2019-03-22] MEDS: AMPICILLIN/SULBACTAM 3 GM in SODIUM CHLORIDE 0.9% 100 ML IV SCH ×2 (01:55→18:45)
[2019-03-22] MEDS: INSULIN LISPRO 100 UNITS/ML, PEN SQ-INSULIN SCH ×4 (02:00→20:00)
[2019-03-22 04:00] VITALS: BP 153/59
[2019-03-22] MEDS: METOPROLOL TARTRATE 25 MG TAB PO SCH ×2 (06:00→07:43)
[2019-03-22 07:54] LABS: BASOPHILS # (AUTO) 0.02 x10^3/uL (0-0.1); BASOPHILS % (AUTO) 0 % (0-1); EOSINOPHILS # (AUTO) 0.22 x10^3/uL (0-0.4); EOSINOPHILS % (AUTO) 2 % (1-7); LYMPHOCYTES % (AUTO) 7 % (22-44); MD NO; MEAN CORPUSCULAR HEMOGLOBIN 29.9 pg (27.5-34.5); MEAN CORPUSCULAR HGB CONC 33.5 g/dL (33.2-36.2); MEAN CORPUSCULAR VOLUME 89.5 fL (81-97); MEAN PLATELET VOLUME 6.8 fL (7.4-10.4); MONOCYTES # (AUTO) 0.88 x10^3/uL (0.2-0.8); MONOCYTES % (AUTO) 8 % (2-9); NEUTROPHILS # (AUTO) 9.55 x10^3/uL (1.8-6.8); NEUTROPHILS % (AUTO) 83 % (42-75); PLATELET COUNT 268 x10^3/uL (130-400); RED BLOOD COUNT 2.96 x10^6/uL (4.38-5.82); RED CELL DISTRIBUTION WIDTH 15.5 % (9.4-14.8)
[2019-03-22 08:01] LABS: ALBUMIN 2.4 g/dL (3.4-5.0); ANION GAP 8 mmol/L (5-15); CALCIUM 9.1 mg/dL (8.5-10.1); CHLORIDE 101 mmol/L (98-107)
[2019-03-22 08:04] LABS: ALANINE AMINOTRANSFERASE 31 U/L (12-78); ALKALINE PHOSPHATASE 183 U/L (45-117); BILIRUBIN,TOTAL 1.1 mg/dL (0.2-1.0); CREATININE 2.51 mg/dL (0.7-1.3)
[2019-03-22] MEDS: INSULIN GLARGINE 100 UNITS/ML, PEN SQ-INSULIN SCH ×2 (09:30→21:02)
[2019-03-22] MEDS: PANTOPRAZOLE 40 MG IV IV SCH (09:44)
[2019-03-22] MEDS: SENNA/DOCUSATE TABLET PO SCH (09:45)
[2019-03-22] MEDS: HEPARIN 5,000 UNITS/ML, 1ML SQ SCH ×2 (09:45→21:02)
[2019-03-22] MEDS: SODIUM CHLORIDE FLUSH 10ML SYR IVF SCH ×2 (09:45→21:00)
[2019-03-22] MEDS: LISINOPRIL 10 MG TABLET PO SCH ×2 (09:46→21:02)
--- NOTE | 2019-03-22 10:55 | NUR ---
REC: NPO with NGT; ice ok; oral care; orange sheet posted Addendum: 03/22/19 at 1055 by Kayleigh CRENSHAW Amended: Links added.
[2019-03-22] MEDS: CARVEDILOL 3.125 MG TABLET PO SCH (18:00)
[2019-03-22 18:46] VITALS: BP 96/68
[2019-03-22] MEDS: IRON SUCROSE COMPLEX 100MG/5ML IV SCH (20:00)
[2019-03-22] MEDS ORDERED: IRON SUCROSE COMPLEX 100MG/5ML IV ONE (21:00)
[2019-03-23] MEDS: INSULIN LISPRO 100 UNITS/ML, PEN SQ-INSULIN SCH ×4 (02:00→20:56)
[2019-03-23 02:33] VITALS: BP 110/66
[2019-03-23 05:34] LABS: BASOPHILS % (AUTO) 0 % (0-1); EOSINOPHILS # (AUTO) 0.34 x10^3/uL (0-0.4); EOSINOPHILS % (AUTO) 3 % (1-7); LYMPHOCYTES # (AUTO) 0.76 x10^3/uL (1-3.4); LYMPHOCYTES % (AUTO) 6 % (22-44); MD NO; MEAN CORPUSCULAR HEMOGLOBIN 29.2 pg (27.5-34.5); MEAN CORPUSCULAR HGB CONC 32.7 g/dL (33.2-36.2); MEAN CORPUSCULAR VOLUME 89.2 fL (81-97); MEAN PLATELET VOLUME 7.1 fL (7.4-10.4); MONOCYTES # (AUTO) 0.87 x10^3/uL (0.2-0.8); MONOCYTES % (AUTO) 7 % (2-9); NEUTROPHILS # (AUTO) 10.49 x10^3/uL (1.8-6.8); NEUTROPHILS % (AUTO) 84 % (42-75); PLATELET COUNT 277 x10^3/uL (130-400); RED BLOOD COUNT 3.12 x10^6/uL (4.38-5.82); RED CELL DISTRIBUTION WIDTH 15.7 % (9.4-14.8)
[2019-03-23 05:40] LABS: ANION GAP 9 mmol/L (5-15); CHLORIDE 98 mmol/L (98-107); TRIGLYCERIDES 217 mg/dL (50-200)
[2019-03-23] MEDS: AMPICILLIN/SULBACTAM 3 GM in SODIUM CHLORIDE 0.9% 100 ML IV SCH ×2 (05:58→17:02)
[2019-03-23] MEDS: CARVEDILOL 3.125 MG TABLET PO SCH ×2 (05:58→17:02)
[2019-03-23 08:26] VITALS: BP 91/53
[2019-03-23] MEDS: LISINOPRIL 10 MG TABLET PO SCH (08:55)
[2019-03-23] MEDS: SENNA/DOCUSATE TABLET PO SCH (08:56)
[2019-03-23] MEDS: HEPARIN 5,000 UNITS/ML, 1ML SQ SCH ×2 (08:59→20:55)
[2019-03-23] MEDS: PANTOPRAZOLE 40 MG IV IV SCH (09:01)
[2019-03-23] MEDS: INSULIN GLARGINE 100 UNITS/ML, PEN SQ-INSULIN SCH ×2 (09:01→20:56)
[2019-03-23] MEDS: SODIUM CHLORIDE FLUSH 10ML SYR IVF SCH ×2 (09:01→20:56)
[2019-03-23 13:21] VITALS: BP 106/55
[2019-03-23 20:01] VITALS: BP 101/54
[2019-03-23] MEDS ORDERED: MELATONIN 5 MG TABLET ONE (21:18)
[2019-03-23] MEDS: MELATONIN 5 MG TABLET PO PRN (21:22)
[2019-03-24 01:43] VITALS: BP 149/68
[2019-03-24] MEDS: INSULIN LISPRO 100 UNITS/ML, PEN SQ-INSULIN SCH ×4 (01:44→20:43)
[2019-03-24] MEDS: AMPICILLIN/SULBACTAM 3 GM in SODIUM CHLORIDE 0.9% 100 ML IV SCH ×2 (05:02→17:33)
[2019-03-24] MEDS: CARVEDILOL 3.125 MG TABLET PO SCH ×2 (05:03→17:33)
[2019-03-24 05:32] LABS: ANION GAP 9 mmol/L (5-15); CALCIUM 8.8 mg/dL (8.5-10.1); CHLORIDE 98 mmol/L (98-107); CREATININE 4.78 mg/dL (0.7-1.3)
[2019-03-24 05:37] LABS: BASOPHILS # (AUTO) 0.02 x10^3/uL (0-0.1); BASOPHILS % (AUTO) 0 % (0-1); EOSINOPHILS # (AUTO) 0.45 x10^3/uL (0-0.4); EOSINOPHILS % (AUTO) 4 % (1-7); LYMPHOCYTES # (AUTO) 1.21 x10^3/uL (1-3.4); LYMPHOCYTES % (AUTO) 11 % (22-44); MD NO; MEAN CORPUSCULAR HEMOGLOBIN 29.7 pg (27.5-34.5); MEAN CORPUSCULAR HGB CONC 33.5 g/dL (33.2-36.2); MEAN CORPUSCULAR VOLUME 88.6 fL (81-97); MEAN PLATELET VOLUME 7.2 fL (7.4-10.4); MONOCYTES # (AUTO) 1.01 x10^3/uL (0.2-0.8); MONOCYTES % (AUTO) 9 % (2-9); NEUTROPHILS % (AUTO) 75 % (42-75); PLATELET COUNT 285 x10^3/uL (130-400); RED BLOOD COUNT 2.94 x10^6/uL (4.38-5.82); RED CELL DISTRIBUTION WIDTH 15.5 % (9.4-14.8)
[2019-03-24 07:13] VITALS: BP 119/53
[2019-03-24] MEDS: PANTOPRAZOLE 40 MG IV IV SCH (08:36)
[2019-03-24] MEDS: HEPARIN 5,000 UNITS/ML, 1ML SQ SCH ×2 (08:36→20:42)
[2019-03-24] MEDS: SENNA/DOCUSATE TABLET PO SCH (08:37)
[2019-03-24] MEDS: LISINOPRIL 5 MG TABLET PO SCH (08:37)
[2019-03-24] MEDS: SODIUM CHLORIDE FLUSH 10ML SYR IVF SCH ×2 (08:38→20:44)
[2019-03-24] MEDS: INSULIN GLARGINE 100 UNITS/ML, PEN SQ-INSULIN SCH ×2 (08:47→20:43)
[2019-03-24 19:09] VITALS: BP 127/56
[2019-03-24] MEDS: ATORVASTATIN 40 MG TABLET PO SCH (20:42)
[2019-03-24] MEDS: ACETAMINOPHEN 325 MG TABLET PO PRN (20:42)
[2019-03-24] MEDS: MELATONIN 5 MG TABLET PO PRN (20:42)
[2019-03-25] VITALS: BP 130/56
[2019-03-25] MEDS: AMPICILLIN/SULBACTAM 3 GM in SODIUM CHLORIDE 0.9% 100 ML IV SCH ×2 (05:40→17:19)
[2019-03-25] MEDS: CARVEDILOL 3.125 MG TABLET PO SCH ×2 (05:40→17:23)
[2019-03-25 06:34] LABS: BASOPHILS # (AUTO) 0.03 x10^3/uL (0-0.1); BASOPHILS % (AUTO) 0 % (0-1); EOSINOPHILS # (AUTO) 0.41 x10^3/uL (0-0.4); EOSINOPHILS % (AUTO) 4 % (1-7); LYMPHOCYTES # (AUTO) 1.21 x10^3/uL (1-3.4); LYMPHOCYTES % (AUTO) 12 % (22-44); MD NO; MEAN CORPUSCULAR HEMOGLOBIN 29.3 pg (27.5-34.5); MEAN CORPUSCULAR HGB CONC 32.8 g/dL (33.2-36.2); MEAN CORPUSCULAR VOLUME 89.3 fL (81-97); MEAN PLATELET VOLUME 7.4 fL (7.4-10.4); MONOCYTES # (AUTO) 1.01 x10^3/uL (0.2-0.8); MONOCYTES % (AUTO) 10 % (2-9); NEUTROPHILS # (AUTO) 7.35 x10^3/uL (1.8-6.8); NEUTROPHILS % (AUTO) 73 % (42-75); PLATELET COUNT 315 x10^3/uL (130-400); RED BLOOD COUNT 3.21 x10^6/uL (4.38-5.82); RED CELL DISTRIBUTION WIDTH 15.8 % (9.4-14.8)
[2019-03-25 06:54] LABS: ALBUMIN 2.5 g/dL (3.4-5.0); ANION GAP 9 mmol/L (5-15); CALCIUM 9.1 mg/dL (8.5-10.1); CHLORIDE 99 mmol/L (98-107); CREATININE 3.55 mg/dL (0.7-1.3)
[2019-03-25] MEDS: INSULIN LISPRO 100 UNITS/ML, PEN SQ-INSULIN SCH ×4 (07:00→20:55)
[2019-03-25 08:04] VITALS: BP 155/75
[2019-03-25] MEDS: SENNA/DOCUSATE TABLET PO SCH (09:00)
[2019-03-25] MEDS: LISINOPRIL 5 MG TABLET PO SCH (09:24)
[2019-03-25] MEDS: HEPARIN 5,000 UNITS/ML, 1ML SQ SCH ×2 (09:26→20:53)
[2019-03-25] MEDS: PANTOPRAZOLE 40 MG IV IV SCH (09:26)
[2019-03-25] MEDS: INSULIN GLARGINE 100 UNITS/ML, PEN SQ-INSULIN SCH ×2 (09:28→20:54)
[2019-03-25] MEDS: SODIUM CHLORIDE FLUSH 10ML SYR IVF SCH ×2 (09:29→20:54)
[2019-03-25 13:35] VITALS: BP 153/69
[2019-03-25 19:55] VITALS: BP 105/61
[2019-03-25] MEDS: ATORVASTATIN 40 MG TABLET PO SCH (20:53)
[2019-03-26] MEDS: MELATONIN 5 MG TABLET PO PRN ×2 (00:16→21:22)
[2019-03-26 00:53] VITALS: BP 145/57
[2019-03-26] MEDS: PANTOPROZOLE 40MG TABLET PO SCH (04:57)
[2019-03-26 05:57] LABS: BASOPHILS # (AUTO) 0.03 x10^3/uL (0-0.1); BASOPHILS % (AUTO) 0 % (0-1); EOSINOPHILS # (AUTO) 0.39 x10^3/uL (0-0.4); EOSINOPHILS % (AUTO) 4 % (1-7); LYMPHOCYTES # (AUTO) 1.19 x10^3/uL (1-3.4); LYMPHOCYTES % (AUTO) 12 % (22-44); MD NO; MEAN CORPUSCULAR HEMOGLOBIN 29.3 pg (27.5-34.5); MEAN CORPUSCULAR HGB CONC 33.4 g/dL (33.2-36.2); MEAN CORPUSCULAR VOLUME 87.7 fL (81-97); MONOCYTES # (AUTO) 0.82 x10^3/uL (0.2-0.8); MONOCYTES % (AUTO) 8 % (2-9); NEUTROPHILS # (AUTO) 7.37 x10^3/uL (1.8-6.8); NEUTROPHILS % (AUTO) 75 % (42-75); PLATELET COUNT 309 x10^3/uL (130-400); RED BLOOD COUNT 3.09 x10^6/uL (4.38-5.82); RED CELL DISTRIBUTION WIDTH 15.4 % (9.4-14.8)
[2019-03-26] MEDS: INSULIN LISPRO 100 UNITS/ML, PEN SQ-INSULIN SCH ×4 (07:00→21:23)
[2019-03-26 07:22] VITALS: BP 148/65
[2019-03-26 08:46] LABS: ALBUMIN 2.3 g/dL (3.4-5.0); ANION GAP 10 mmol/L (5-15); CALCIUM 8.4 mg/dL (8.5-10.1); CHLORIDE 98 mmol/L (98-107); CREATININE 3.22 mg/dL (0.7-1.3)
[2019-03-26] MEDS ORDERED: REGADENOSON 0.4 MG/5 ML SYRINGE ONE (11:02)
[2019-03-26 12:29] VITALS: BP 126/65
[2019-03-26] MEDS: INSULIN GLARGINE 100 UNITS/ML, PEN SQ-INSULIN SCH ×2 (13:04→21:24)
[2019-03-26] MEDS: HEPARIN 5,000 UNITS/ML, 1ML SQ SCH ×2 (13:04→21:22)
[2019-03-26] MEDS: LISINOPRIL 5 MG TABLET PO SCH (13:05)
[2019-03-26] MEDS: CARVEDILOL 3.125 MG TABLET PO SCH ×2 (13:05→17:27)
[2019-03-26] MEDS: SODIUM CHLORIDE FLUSH 10ML SYR IVF SCH ×2 (13:05→21:23)
[2019-03-26] MEDS: SENNA/DOCUSATE TABLET PO SCH (13:05)
[2019-03-26] MEDS: DARBEPOETIN 100 MCG/ML SQ SCH (14:47)
[2019-03-26 19:31] VITALS: BP 118/66
[2019-03-26] MEDS: ATORVASTATIN 40 MG TABLET PO SCH (21:22)
[2019-03-27 02:00] VITALS: BP 153/66
[2019-03-27] MEDS: PANTOPROZOLE 40MG TABLET PO SCH (05:26)
[2019-03-27] MEDS: CARVEDILOL 3.125 MG TABLET PO SCH ×2 (05:27→17:18)
[2019-03-27 08:03] VITALS: BP 109/60
[2019-03-27] MEDS: INSULIN LISPRO 100 UNITS/ML, PEN SQ-INSULIN SCH ×4 (08:15→21:08)
[2019-03-27] MEDS: LISINOPRIL 5 MG TABLET PO SCH (08:15)
[2019-03-27] MEDS: INSULIN GLARGINE 100 UNITS/ML, PEN SQ-INSULIN SCH ×2 (08:15→21:08)
[2019-03-27] MEDS: SENNA/DOCUSATE TABLET PO SCH (08:15)
[2019-03-27] MEDS: HEPARIN 5,000 UNITS/ML, 1ML SQ SCH ×2 (08:16→21:08)
[2019-03-27] MEDS: SODIUM CHLORIDE FLUSH 10ML SYR IVF SCH ×2 (08:16→21:09)
[2019-03-27 09:20] LABS: BASOPHILS # (AUTO) 0.03 x10^3/uL (0-0.1); BASOPHILS % (AUTO) 0 % (0-1); EOSINOPHILS # (AUTO) 0.14 x10^3/uL (0-0.4); EOSINOPHILS % (AUTO) 2 % (1-7); LYMPHOCYTES # (AUTO) 1.14 x10^3/uL (1-3.4); LYMPHOCYTES % (AUTO) 12 % (22-44); MD NO; MEAN CORPUSCULAR HEMOGLOBIN 29.3 pg (27.5-34.5); MEAN CORPUSCULAR HGB CONC 32.8 g/dL (33.2-36.2); MEAN CORPUSCULAR VOLUME 89.2 fL (81-97); MEAN PLATELET VOLUME 7.2 fL (7.4-10.4); MONOCYTES # (AUTO) 0.68 x10^3/uL (0.2-0.8); MONOCYTES % (AUTO) 7 % (2-9); NEUTROPHILS # (AUTO) 7.81 x10^3/uL (1.8-6.8); NEUTROPHILS % (AUTO) 80 % (42-75); PLATELET COUNT 341 x10^3/uL (130-400); RED BLOOD COUNT 3.35 x10^6/uL (4.38-5.82); RED CELL DISTRIBUTION WIDTH 15.3 % (9.4-14.8)
[2019-03-27 09:57] LABS: ANION GAP 10 mmol/L (5-15); CALCIUM 8.6 mg/dL (8.5-10.1); CHLORIDE 99 mmol/L (98-107); CREATININE 2.81 mg/dL (0.7-1.3)
[2019-03-27 09:58] LABS: ALBUMIN 2.5 g/dL (3.4-5.0)
[2019-03-27 13:36] VITALS: BP 154/63
[2019-03-27 19:19] VITALS: BP 132/66
[2019-03-27] MEDS: MELATONIN 5 MG TABLET PO PRN (21:09)
[2019-03-27] MEDS: ATORVASTATIN 40 MG TABLET PO SCH (21:09)
[2019-03-28 01:29] VITALS: BP 129/62
[2019-03-28] MEDS: PANTOPROZOLE 40MG TABLET PO SCH (04:45)
[2019-03-28] MEDS: CARVEDILOL 3.125 MG TABLET PO SCH ×2 (04:46→18:23)
[2019-03-28 05:26] LABS: BASOPHILS # (AUTO) 0.03 x10^3/uL (0-0.1); BASOPHILS % (AUTO) 0 % (0-1); EOSINOPHILS # (AUTO) 0.26 x10^3/uL (0-0.4); EOSINOPHILS % (AUTO) 3 % (1-7); LYMPHOCYTES # (AUTO) 1.38 x10^3/uL (1-3.4); LYMPHOCYTES % (AUTO) 16 % (22-44); MD NO; MEAN CORPUSCULAR HEMOGLOBIN 29.4 pg (27.5-34.5); MEAN CORPUSCULAR HGB CONC 33.2 g/dL (33.2-36.2); MEAN CORPUSCULAR VOLUME 88.6 fL (81-97); MEAN PLATELET VOLUME 7.4 fL (7.4-10.4); MONOCYTES # (AUTO) 0.66 x10^3/uL (0.2-0.8); MONOCYTES % (AUTO) 7 % (2-9); NEUTROPHILS # (AUTO) 6.57 x10^3/uL (1.8-6.8); NEUTROPHILS % (AUTO) 74 % (42-75); PLATELET COUNT 337 x10^3/uL (130-400); RED BLOOD COUNT 3.04 x10^6/uL (4.38-5.82); RED CELL DISTRIBUTION WIDTH 15.4 % (9.4-14.8)
[2019-03-28 07:39] LABS: ANION GAP 8 mmol/L (5-15); CHLORIDE 101 mmol/L (98-107); CREATININE 2.36 mg/dL (0.7-1.3)
[2019-03-28] MEDS: INSULIN GLARGINE 100 UNITS/ML, PEN SQ-INSULIN SCH ×2 (08:30→21:29)
[2019-03-28] MEDS: INSULIN LISPRO 100 UNITS/ML, PEN SQ-INSULIN SCH ×4 (08:30→21:29)
[2019-03-28] MEDS: HEPARIN 5,000 UNITS/ML, 1ML SQ SCH ×2 (08:31→21:28)
[2019-03-28] MEDS: LISINOPRIL 5 MG TABLET PO SCH (08:31)
[2019-03-28] MEDS: SENNA/DOCUSATE TABLET PO SCH (08:31)
[2019-03-28] MEDS: SODIUM CHLORIDE FLUSH 10ML SYR IVF SCH ×2 (08:35→21:29)
[2019-03-28 08:37] VITALS: BP 97/55
[2019-03-28] MEDS: ASPIRIN 81 MG TABLET EC PO SCH (09:27)
[2019-03-28 13:17] VITALS: BP 137/65
[2019-03-28 18:52] VITALS: BP 123/66
[2019-03-28] MEDS: ATORVASTATIN 40 MG TABLET PO SCH (21:28)
[2019-03-29 01:19] VITALS: BP 130/61
[2019-03-29] MEDS: PANTOPROZOLE 40MG TABLET PO SCH (05:16)
[2019-03-29] MEDS: CARVEDILOL 3.125 MG TABLET PO SCH (05:16)
[2019-03-29 05:59] LABS: ANION GAP 6 mmol/L (5-15); CALCIUM 9.2 mg/dL (8.5-10.1); CHLORIDE 104 mmol/L (98-107)
[2019-03-29 06:00] LABS: CREATININE 2.23 mg/dL (0.7-1.3); TRIGLYCERIDES 245 mg/dL (50-200)
[2019-03-29 06:15] LABS: BASOPHILS # (AUTO) 0.03 x10^3/uL (0-0.1); BASOPHILS % (AUTO) 0 % (0-1); EOSINOPHILS # (AUTO) 0.22 x10^3/uL (0-0.4); EOSINOPHILS % (AUTO) 2 % (1-7); LYMPHOCYTES # (AUTO) 1.53 x10^3/uL (1-3.4); LYMPHOCYTES % (AUTO) 17 % (22-44); MD NO; MEAN CORPUSCULAR HEMOGLOBIN 29.2 pg (27.5-34.5); MEAN CORPUSCULAR HGB CONC 32.9 g/dL (33.2-36.2); MEAN CORPUSCULAR VOLUME 88.7 fL (81-97); MEAN PLATELET VOLUME 7.5 fL (7.4-10.4); MONOCYTES # (AUTO) 0.68 x10^3/uL (0.2-0.8); MONOCYTES % (AUTO) 7 % (2-9); NEUTROPHILS # (AUTO) 6.77 x10^3/uL (1.8-6.8); NEUTROPHILS % (AUTO) 73 % (42-75); PLATELET COUNT 419 x10^3/uL (130-400); RED BLOOD COUNT 3.33 x10^6/uL (4.38-5.82); RED CELL DISTRIBUTION WIDTH 15.8 % (9.4-14.8)
[2019-03-29 07:27] VITALS: BP 125/58
[2019-03-29] MEDS: LISINOPRIL 5 MG TABLET PO SCH (08:26)
[2019-03-29] MEDS: ASPIRIN 81 MG TABLET EC PO SCH (08:26)
[2019-03-29] MEDS: SENNA/DOCUSATE TABLET PO SCH (08:26)
[2019-03-29] MEDS: INSULIN GLARGINE 100 UNITS/ML, PEN SQ-INSULIN SCH (08:27)
[2019-03-29] MEDS: INSULIN LISPRO 100 UNITS/ML, PEN SQ-INSULIN SCH ×3 (08:27→16:52)
[2019-03-29] MEDS: HEPARIN 5,000 UNITS/ML, 1ML SQ SCH (08:31)
[2019-03-29] MEDS: SODIUM CHLORIDE FLUSH 10ML SYR IVF SCH (08:31)
[2019-03-29 14:00] VITALS: BP 159/71
[2019-03-29] MEDS ORDERED: CARV3.1212 PO (15:18)
[2019-03-29] MEDS ORDERED: LISI5TAB7 PO (15:18)
[2019-03-29] MEDS ORDERED: INSU100I13 SQ-INSULIN (15:19)
[2019-03-29] MEDS ORDERED: INSU100I11 SQ-INSULIN (15:26)
== END 2019-03-29 18:23 | disposition home health service (06) | DRG 208 ==
LOC: MERGE 16:02 → ED 16:21 → EDIP 16:22 → ED 16:49 → CCU 17:42 → 4EST 03-22 18:05 → 4WST 03-24 01:21
PROVIDERS: ADMIT Internal Medicine; ATTEND Internal Medicine
PROC: 5A1945Z Respiratory Ventilation, 24-96 Consecutive Hours (ICD-10-PCS; principal; 2019-03-17)
PROC: 0BH17EZ Insertion of Endotracheal Airway into Trachea, Via Natural or Artificial Opening (ICD-10-PCS; 2019-03-17)
PROC: 5A12012 Performance of Cardiac Output, Single, Manual (ICD-10-PCS; 2019-03-17)
PROC: 5A1D70Z Performance of Urinary Filtration, Intermittent, Less than 6 Hours Per Day (ICD-10-PCS; 2019-03-18)
PROC: 02HV33Z Insertion of Infusion Device into Superior Vena Cava, Percutaneous Approach (ICD-10-PCS; 2019-03-18)
PROC: B548ZZA Ultrasonography of Superior Vena Cava, Guidance (ICD-10-PCS; 2019-03-18)
PROC: 5A1D70Z Performance of Urinary Filtration, Intermittent, Less than 6 Hours Per Day (ICD-10-PCS; 2019-03-19)
PROC: 5A1D70Z Performance of Urinary Filtration, Intermittent, Less than 6 Hours Per Day (ICD-10-PCS; 2019-03-20)
PROC: 5A09457 Assistance with Respiratory Ventilation, 24-96 Consecutive Hours, Continuous Positive Airway Pressure (ICD-10-PCS; 2019-03-21)
PROC: 5A1D70Z Performance of Urinary Filtration, Intermittent, Less than 6 Hours Per Day (ICD-10-PCS; 2019-03-21)
PROC: 5A1D70Z Performance of Urinary Filtration, Intermittent, Less than 6 Hours Per Day (ICD-10-PCS; 2019-03-22)
PROC: 5A1D70Z Performance of Urinary Filtration, Intermittent, Less than 6 Hours Per Day (ICD-10-PCS; 2019-03-24)
DX: J96.22 Acute and chronic respiratory failure with hypercapnia (principal); G93.41 Metabolic encephalopathy; N17.0 Acute kidney failure with tubular necrosis; I46.9 Cardiac arrest, cause unspecified; I50.43 Acute on chronic combined systolic (congestive) and diastolic (congestive) heart failure; J69.0 Pneumonitis due to inhalation of food and vomit; I13.0 Hypertensive heart and chronic kidney disease with heart failure and stage 1 through stage 4 chronic kidney disease, or unspecified chronic kidney disease; E87.1 Hypo-osmolality and hyponatremia; E87.2 Acidosis; I42.9 Cardiomyopathy, unspecified; E46 Unspecified protein-calorie malnutrition; I47.1 Supraventricular tachycardia; I48.92 Unspecified atrial flutter; Z99.11 Dependence on respirator [ventilator] status; N18.4 Chronic kidney disease, stage 4 (severe); E87.5 Hyperkalemia; I44.0 Atrioventricular block, first degree; D63.1 Anemia in chronic kidney disease; E11.22 Type 2 diabetes mellitus with diabetic chronic kidney disease; E11.319 Type 2 diabetes mellitus with unspecified diabetic retinopathy without macular edema; E11.43 Type 2 diabetes mellitus with diabetic autonomic (poly)neuropathy; E11.65 Type 2 diabetes mellitus with hyperglycemia; E55.9 Vitamin D deficiency, unspecified; E66.9 Obesity, unspecified; Z68.31 Body mass index [BMI] 31.0-31.9, adult; E78.00 Pure hypercholesterolemia, unspecified; E78.5 Hyperlipidemia, unspecified; G47.33 Obstructive sleep apnea (adult) (pediatric); I25.10 Atherosclerotic heart disease of native coronary artery without angina pectoris; I44.1 Atrioventricular block, second degree; I45.10 Unspecified right bundle-branch block; J96.21 Acute and chronic respiratory failure with hypoxia; K31.84 Gastroparesis; N25.0 Renal osteodystrophy; R13.10 Dysphagia, unspecified; Z51.5 Encounter for palliative care; Z82.49 Family history of ischemic heart disease and other diseases of the circulatory system; Z83.3 Family history of diabetes mellitus; Z87.891 Personal history of nicotine dependence; Z99.2 Dependence on renal dialysis; Z99.81 Dependence on supplemental oxygen
CPT/HCPCS: 36415; 36556; 36600; 70450; 71045; 74018; 74230; 76770; 76937; 77001; 78452; 80048; 80053; 80069; 80074; 80307; 81001; 82010; 82140; 82306; 82310; 82728; 82803; 82947; 82962; 83036; 83540; 83550; 83605; 83690; 83735; 83880; 83970; 84100; 84443; 84478; 84484; 84550; 85025; 85610; 85730; 86480; 86706; 87040; 87070; 87081; 87205; 87340; 90935; 92950; 93005; 93017; 94002; 94003; 94150; 94640; 99285; C8929; G0378; J0295; J0881; J1644; J1756; J2310; J2405; J2704; J2785; J3010; J7042; J7620; A9502; C1751; C9113; C9898; J1642; J1815; J2270; J3490; J7030